=== PATIENT | female | born 1975 | race Hispanic/Latino ===

== ENCOUNTER 2021-07-11 11:37 | Emergency (ER) | payer OTHER ==
[~2021-07-11] VITALS: Ht 165.1 cm; Wt 145.6 kg
[2021-07-11 11:43] VITALS: BP 141/81
[2021-07-11] MEDS ORDERED: KETOROLAC 60 MG VIAL (30MG/ML) ONE (12:22)
[2021-07-11] MEDS ORDERED: DIAZEPAM 5 MG TABLET ONE (12:23)
[2021-07-11] MEDS ORDERED: HYDROCODONE/ACETAMINOPHEN 10/325 MG TAB ONE (12:24)
[2021-07-11] MEDS ORDERED: KETO10 PO (12:27)
[2021-07-11] MEDS ORDERED: DIAZ5TAB PO (12:27)
[2021-07-11] MEDS ORDERED: KETOROLAC 60 MG VIAL (30MG/ML) IM ONE (12:30)
[2021-07-11] MEDS ORDERED: HYDROCODONE/ACETAMINOPHEN 10/325 MG TAB PO ONE (12:30)
[2021-07-11] MEDS ORDERED: DIAZEPAM 5 MG TABLET PO ONE (12:30)
== END 2021-07-11 12:36 | disposition home or self-care (01) ==
LOC: EDH 11:37
DX: M43.6 Torticollis (principal); I10 Essential (primary) hypertension; Z88.5 Allergy status to narcotic agent; Z88.8 Allergy status to other drugs, medicaments and biological substances; Z71.82 Exercise counseling; Z79.1 Long term (current) use of non-steroidal anti-inflammatories (NSAID)
CPT/HCPCS: 96372; 99283; J1885

== ENCOUNTER 2022-10-30 19:42 | Emergency (ER) | payer BC, OTHER ==
[~2022-10-30] VITALS: Ht 162.6 cm; Wt 159.2 kg
[~2022-10-30 19:42] MED LIST: DIAZ5TAB PO; IOHEXOL 350 MG/ML 100ML INFUS..BTL IV ONE; KETO10 PO
[2022-10-31 00:34] LABS: CREATININE 0.9 mg/dL (0.5-1.5)
[2022-10-31 00:38] LABS: BASOPHILS % (AUTO) 0.5 % (0.0-5.0); EOSINOPHILS % (AUTO) 2.9 % (0.0-8.0); HEMATOCRIT 41.3 % (36-48); LYMPHOCYTES % (AUTO) 32.9 % (21.0-51.0); MEAN CORPUSCULAR HEMOGLOBIN 26.7 pg (27.0-33.0); MEAN CORPUSCULAR HGB CONC 31.5 g/dL (32.0-36.0); MONOCYTES % (AUTO) 8.3 % (3.0-13.0); NEUTROPHILS % (AUTO) 55.2 % (40.0-77.0); PLATELET COUNT (AUTO) 283 K/uL (130-400); RED BLOOD CELL COUNT(AUTO) 4.86 MIL/uL (4.00-5.50); RED CELL DISTRIBUTION WIDTH 15.2 % (11.0-15.5); WHITE BLOOD COUNT (AUTO) 8.6 K/uL (4.8-10.8)
[2022-10-31 00:40] LABS: ALBUMIN 3.2 g/dL (3.5-5.0); TOTAL PROTEIN, SERUM 7.3 g/dL (6.0-8.3)
[2022-10-31] MEDS ORDERED: IOHEXOL 350 MG/ML 100ML INFUS..BTL IV ONE (01:15)
[2022-10-31] MEDS ORDERED: KETOROLAC 60 MG VIAL (30MG/ML) IM ONE (01:30)
[2022-10-31] MEDS ORDERED: IBUP-1493 PO (03:15)
[2022-10-31 03:22] VITALS: BP 128/75
== END 2022-10-31 03:21 | disposition home or self-care (01) ==
LOC: EDH 19:42
DX: R10.2 Pelvic and perineal pain (principal); F17.200 Nicotine dependence, unspecified, uncomplicated; Z79.1 Long term (current) use of non-steroidal anti-inflammatories (NSAID); Z88.5 Allergy status to narcotic agent; Z88.8 Allergy status to other drugs, medicaments and biological substances; Z79.899 Other long term (current) drug therapy
CPT/HCPCS: 99284; 74177; 82150; 82550; 84484; 80053; 84703; 83690; 85025; 36415; 96372; Q9967; J1885